=== PATIENT | female | born 1940 | race Caucasian/White ===

== ENCOUNTER 2018-07-31 19:37 | Inpatient (IN) | payer MEDICARE, OTHER ==
[~2018-07-31] VITALS: Ht 170.2 cm; Wt 83.5 kg
[~2018-07-31 19:37] MED LIST: LEVO112T5 PO; METF1000 PO; MONT10TA22 PO; TRIM100T PO
--- NOTE | 2018-07-31 19:40 | NUR ---
PT BIBRA FROM HOME C/O GLF WITH HEAD LACERATION AND L ELBOW PAIN X 30MIN AGO. ON BLOOD THINNERS PER RA. -LOC. PT AOX4. NAD NOTED. RESP EVEN AND UNLABORED. PT ON MONITOR IN BED 12. WILL CONTINUE TO MONITOR.
--- NOTE | 2018-07-31 20:45 | NUR ---
PT TAKEN TO RADIOLOGY VIA WILMER
--- NOTE | 2018-07-31 21:20 | NUR ---
PHLEB AT BEDSIDE
[2018-07-31 21:24] LABS: BASOPHILS % (AUTO) 0.5 % (0.0-2.0); EOSINOPHILS % (AUTO) 1.5 % (0.0-6.0); HEMATOCRIT 42 % (33-45); HEMOGLOBIN 14.4 g/dL (11.5-14.8); LYMPHOCYTES # (AUTO) 2.2 /CMM (0.8-4.8); LYMPHOCYTES % (AUTO) 20.4 % (20.0-44.0); MEAN CORPUSCULAR HGB CONC 34 g/dl (31.0-36.0); MEAN CORPUSCULAR VOLUME 93 fL (82-100); MONOCYTES # (AUTO) 0.6 /CMM (0.1-1.30); MONOCYTES % (AUTO) 5.5 % (2.0-12.0); NEUTROPHILS # (AUTO) 7.7 /CMM (1.8-8.9); NEUTROPHILS % (AUTO) 72.1 % (43.0-81.0); PLATELET COUNT (AUTO) 276 /CMM (150-450); RED BLOOD CELL COUNT(AUTO) 4.51 MIL/uL (4.0-5.2); WHITE BLOOD COUNT (AUTO) 10.7 K/uL (4.3-11.0)
[2018-07-31] MEDS ORDERED: HYDROMORPHONE INJ 0.5 MG/0.5 ML SYRINGE ONE (21:27)
[2018-07-31] MEDS ORDERED: ONDANSETRON HCL/PF 4 MG/2 ML VIAL ONE (21:27)
[2018-07-31] MEDS ORDERED: HYDROMORPHONE INJ 2 MG/ML DISP.SYRIN IV ONE (21:30)
[2018-07-31] MEDS ORDERED: ONDANSETRON HCL/PF 4 MG/2 ML VIAL IVP ONE (21:30)
[2018-07-31 21:34] LABS: CALCIUM, SERUM 9.1 mg/dL (8.5-10.1); CARBON DIOXIDE 25 mmol/L (21-32); CHLORIDE 102 mmol/L (98-107); CREATININE 1.1 mg/dL (0.6-1.3); GLUCOSE 257 mg/dL (74-106); POTASSIUM 3.5 mmol/L (3.5-5.1); SODIUM SERUM 134 mmol/L (136-145); UREA NITROGEN, BLOOD 22 mg/dL (7-18)
[2018-07-31] MEDS ORDERED: Z GUARD REMEDY 2 OZ OINT TP PRN (22:30)
[2018-07-31] MEDS ORDERED: ACETAMINOPHEN 325 MG TABLET PO PRN (22:30)
[2018-07-31] MEDS ORDERED: MAG HYDROX/AL HYDROX/SIMETH 30 ML UDC PO PRN (22:30)
[2018-07-31] MEDS ORDERED: DEXTROSE 50%-WATER 50 ML DISP.SYRIN IV PRN (22:30)
[2018-07-31] MEDS ORDERED: MAGNESIUM HYDROXIDE 30 ML UDC PO PRN (22:30)
[2018-07-31] MEDS ORDERED: ZOLPIDEM TARTRATE 5 MG TABLET PO PRN (22:30)
--- NOTE | 2018-07-31 22:31 | NUR ---
REPORT GIVEN TO AMBER LORD FOR CONTINUATION OF CARE.
[2018-07-31] MEDS ORDERED: LIRA0.6P2 SUBCUT (22:33)
[2018-07-31 23:00] VITALS: BP 193/105
--- NOTE | 2018-07-31 23:00 | NUR ---
CORE BLOWER OPERATOR NOTE PT RECEIVED ON GURNEY AND TRANSFERRED TO ROOM 255 SAFELY. A/O X4 AND ABLE TO MAKE NEEDS KNOWN. ON ROOM AIR AND SATURATING 95%. BREATHING REGULAR AND UNLABORED. NO DISTRESS NOTED. C/O HEADACHE 2-3 OUT OF 10 PAIN. DENIES NAUSEA/VOMIT. PUPILS ARE EQUAL AND REACTIVE. TELE-SR 78. IV LEFT HAND #20 CLEAN, DRY AND FLUSHING WELL. ROOM PHONE PLACED NEXT TO PT. CALL LIGHT WITHIN REACH. WILL CONTINUE TO MONITOR.
[2018-07-31] MEDS: IV NS 0.9% 1,000 ML IV PRN (23:01)
[2018-07-31 23:04] VITALS: BP 193/105
[2018-07-31] MEDS: BLOOD SUGAR DIAGNOSTIC 1 EACH STRIP IN SCH (23:14)
[2018-07-31] MEDS: hydrALAZINE HCL IV 20 MG VIAL IV PRN (23:14)
[2018-07-31] MEDS: INSULIN REGULAR, HUMAN 100 UNIT/ML 3 ML VIAL SQ PRN (23:16)
[2018-07-31 23:30] VITALS: BP 189/96
[2018-07-31 23:45] VITALS: BP 162/85
[2018-08-01] VITALS (29 sets, daily range): BP systolic 114–197; BP diastolic 68–126
[2018-08-01] MEDS: HYDROCODONE/APAP 5/325MG 1 EACH TABLET PO PRN (00:04)
[2018-08-01] MEDS: HYDROMORPHONE 1 MG/1 ML DISP.SYRIN IV PRN ×4 (01:35→20:55)
[2018-08-01] MEDS: ONDANSETRON HCL/PF 4 MG/2 ML VIAL IVP PRN ×4 (01:40→21:01)
--- NOTE | 2018-08-01 01:40 | NUR ---
MAID HOUSEKEEPER NOTE BOOKKEEPING MANAGER ALEJANDRO OPENER TENDER AT BEDSIDE. PT C/O HEADACHE 9 OUT OF 10 PAIN. PT STATES NORCO NOT EFFECTIVE. ALEJANDRO ORDERED DILAUDID 0.5MG IVP PRN AND TO GIVE 1 DOSE NOW. ORDERS NOTED AND CARRIED OUT.
--- NOTE | 2018-08-01 03:30 | NUR ---
TOW TRUCK OPERATOR NOTE PT C/O ITCHINESS ALL OVER BODY. ALEJANDRO CVT RN NOTIFIED WITH ORDER FOR BENADRYL 50MG IVP Q6H PRN. ORDERS NOTED AND CARRIED OUT.
[2018-08-01] MEDS: diphenhydrAMINE HCL 50 MG/ML VIAL IV PRN ×2 (03:40→15:48)
[2018-08-01] MEDS: hydrALAZINE HCL IV 20 MG VIAL IV PRN ×4 (04:30→18:42)
[2018-08-01 04:41] LABS: BASOPHILS % (AUTO) 0.3 % (0.0-2.0); EOSINOPHILS % (AUTO) 0.4 % (0.0-6.0); HEMATOCRIT 41 % (33-45); HEMOGLOBIN 14.2 g/dL (11.5-14.8); LYMPHOCYTES % (AUTO) 19.8 % (20.0-44.0); MEAN CORPUSCULAR HGB CONC 34 g/dl (31.0-36.0); MEAN CORPUSCULAR VOLUME 91 fL (82-100); MONOCYTES # (AUTO) 0.6 /CMM (0.1-1.30); MONOCYTES % (AUTO) 6.1 % (2.0-12.0); NEUTROPHILS # (AUTO) 7.3 /CMM (1.8-8.9); NEUTROPHILS % (AUTO) 73.4 % (43.0-81.0); PLATELET COUNT (AUTO) 278 /CMM (150-450); RED BLOOD CELL COUNT(AUTO) 4.54 MIL/uL (4.0-5.2); WHITE BLOOD COUNT (AUTO) 9.9 K/uL (4.3-11.0)
[2018-08-01 04:51] LABS: CHOLESTEROL 163 mg/dL (<200); HDL CHOLESTEROL 52 mg/dL (40-60); LDL 99 mg/dL (0-99); TRIGLYCERIDES 81 mg/dL (30-150)
[2018-08-01 04:53] LABS: CALCIUM, SERUM 8.6 mg/dL (8.5-10.1); CARBON DIOXIDE 27 mmol/L (21-32); CHLORIDE 104 mmol/L (98-107); CREATININE 0.9 mg/dL (0.6-1.3); GLUCOSE 189 mg/dL (74-106); MAGNESIUM 1.6 mg/dL (1.8-2.4); PHOSPHORUS 3.7 mg/dL (2.5-4.9); POTASSIUM 3.6 mmol/L (3.5-5.1); SODIUM SERUM 139 mmol/L (136-145); UREA NITROGEN, BLOOD 17 mg/dL (7-18)
--- NOTE | 2018-08-01 07:20 | NUR ---
RN INITIAL NOTES RECEIVED PT AWAKE, A/OX4. ON ROOM AIR. NO RESPIRATORY DISTRESS NOTED. PT C/O HEADACHE AND NAUSEA. WILL GIVE PAIN AND ANTIEMETIC ORDERED. HOB ELEVATED. IV LINE IN PLACE. IVF INFUSING. PT CONTINENT. USES BEDSIDE COMMODE. BLE ELEVATED. CALL LIGHT WITHIN REACH. WILL MONITOR.
--- NOTE | 2018-08-01 07:40 | NUR ---
CARE ASSOCIATE NOTE PT REMAINED STABLE DURING SHIFT. NO ACUTE DISTRESS NOTED. ON NEURO CHECKS Q2H. REMAINS ALERT AND ORIENTED. ALL NEEDS ATTENDED TO PROMPTLY. ALL SAFETY MEASURES IN PLACE. WILL ENDORSE TO NEXT SHIFT FOR CONTINUITY OF CARE.
[2018-08-01] MEDS: BLOOD SUGAR DIAGNOSTIC 1 EACH STRIP IN SCH ×4 (08:13→21:56)
[2018-08-01] MEDS: LEVOTHYROXINE SODIUM 112 MCG TABLET PO SCH (08:13)
[2018-08-01] MEDS: Magnesium 1GM/D5W 100ML PREMIX 100 ML IV SCH ×2 (09:55→11:06)
[2018-08-01] MEDS: IV NS 0.9% 1,000 ML IV PRN (11:09)
[2018-08-01] MEDS: INSULIN REGULAR, HUMAN 100 UNIT/ML 3 ML VIAL SQ PRN ×3 (12:26→21:55)
--- NOTE | 2018-08-01 13:00 | NUR ---
RN NOTES SEEN AND EXAMINED BY DR PAULSON. MD AWARE OF CURRENT LAB VALUES AND IMAGING STUDIES. NO CHANGE IN LOC NOTED. MD ORDERED REPEAT CT HEAT WO CONTRAST FOR FF UP. WILL CONTINUE TO MONITOR.
--- NOTE | 2018-08-01 14:00 | NUR ---
RN NOTES SEEN AND EXAMINED BY DR SYLVIE RICHARDSON. MD AWARE OF LAB VALUES AND LATEST IMAGING STUDIES. NO CHANGE IN LOC NOTED. CLEARED PT FOR TELE. WILL CONTINUE TO MONITOR.
--- NOTE | 2018-08-01 17:00 | NUR ---
RN NOTES PT TRANSFERRED TO ROOM 325-2. PT A/OX4. ON ROOM AIR. NO RESPIRATORY DISTRESS NOTED. NO CHANGE IN LOC NOTED. IV LINE IN PLACE. IVF INFUSING. PT CLEAN AND DRY. REPORT GIVEN TO RISA HAYES AT BEDSIDE. TOOK OVER PT'S CARE. TRANSFERRED IN STABLE CONDITION
--- NOTE | 2018-08-01 17:05 | NUR ---
ULTRASONIC CLEANERTWISTING PRESS OPERATOR NOTE RECEIVED PT FROM ICU VIA BED. PT IS ALERT AND ORIENTED X4, DENIES CHANGES IN VISION OR NUMBNESS OR TINGLING OF EXTREMITIES. BILATERAL ARMS AND LEGS ARE STRONG AND EQUAL. FACE IS SYMMETRICAL, SPEECH IS NOT SLURRED. PT IS ABLE TO COMPREHEND QUESTIONS AND COMMUNICATE NEEDS. PT STATES SHE HAS NAUSEA AND AN ACHING HEADACHE 4/10, WAS ADMINISTERED ZOFRAN 4MG AND DILAUDID 0.5MG IN ICU AT 1427. PT PLACED IN FENCE REPAIRMAN WITH SINUS RHYTHM, HR IN 90'S. VS OBTAINED, BP IS 158/86, PT HAS ORDERS TO KEEP SPB UNDER 140, HYDRALAZINE 10MG IV Q4H WAS ADMINISTERED AT 1427. WILL CONTINUE TO MONITOR BP. BREATHING IS EVEN AND UNLABORED ON ROOM AIR. PT DENIES CHEST PAIN AND SOB. R HAND #20G IV IS INFUSING NS @ 75ML/HR WITHOUT REDNESS OR SWELLING. ALL BELONGINGS ACCOUNTED FOR AND BELONGINGS LIST PLACED IN CHART. UNIT ORIENTATION PROVIDED TO PT INCLUDING USE OF CALL LIGHT AND TO CALL FOR ASSISTANCE PRIOR TO ATTEMPTING TO GET OUT OF BED. PT VERBALIZED AGREEMENT AND UNDERSTANDING. BED IS LOCKED AND IN LOWEST POSITION, SIDE RAILS UP X2,BED ALARM ON ,CALL LIGHT WITHIN REACH.
--- NOTE | 2018-08-01 17:41 | NUR ---
MS RN ACCU CHECK BS: 186, NO COVERAGE PROVIDED HOWEVER BECAUSE PT STATED SHE DOES NOT WANT TO EAT DINNER DUE TO C/O OF NAUSEA.
--- NOTE | 2018-08-01 18:43 | NUR ---
MS RN HYDRALAZINE HYDRALAZINE 10MG IVP ADMINISTERED ORDERED FOR BP 168/88 , HR 90. PT IS ON TELE MONITOR WITH SR.
--- NOTE | 2018-08-01 18:55 | NUR ---
MS RN NOTE PT CURRENT BP IS 158/87, HR 94. PT IS SR ON MONITOR.
--- NOTE | 2018-08-01 19:20 | NUR ---
SHAREPOINT DEVELOPER CLOSING NOTE PT IN BED, SLEEPING AND EASILY AROUSABLE. NEUROLOGIC STATUS AT BASELINE WITH PT A/O X4, DENIES CHANGES IN VISION OR NUMBNESS AND TINGLING IN THE EXTREMITIES. STRENGTH IS EQUAL AND BILATERAL IN ARMS AND LEGS. PUPILS ARE REACTIVE AND EQUAL BILATERALLY. PT IS STILL NAUSEOUS, DENIES N/V, CHEST PAIN, SOB. BREATHING IS EVEN AND UNLABORED ON ROOM AIR. PT ON BREAD WRAPPER WITH SR, HR IN 90'S. PT DENIES CHEST PAIN OR SOB. L HAND #20G IV IS INFUSING ORDERED WITHOUT REDNESS OR SWELLING. ALL NEEDS ATTENDED TO. PT SCHEDULED FOR ROUTINE HEAD CT W/O CONTRAST. BED IS LOCKED AND IN LOWEST POSITION, SIDE RAILS UP X2, BED ALARM ON, CALL LIGHT AND POSSESSIONS WITHIN REACH. WILL ENDORSE TO PIPELINE EXECUTIVE NURSE FOR CONTINUITY OF CARE.
--- NOTE | 2018-08-01 19:30 | NUR ---
SECURITY SOFTWARE ENGINEER NOTES RECEIVED PATIENT AWAKE IN BED WITH NO DISTRESS NOTED. CALL LIGHT WITHIN REACH. NO C/O PAIN OR DISCOMFORT. PERIPHERAL LINE INTACT AND PATENT. BED IN LOW LOCK SETTING. ALL BELONGINGS KEPT NEAR BEDSIDE. WILL CONTINUE TO MONITOR.
[2018-08-01] MEDS: MONTELUKAST SODIUM (10MG) 10 MG TABLET PO SCH (22:00)
[2018-08-02] VITALS: BP_SYST 154; BP_SYST 182; BP_DIAS 77; BP_DIAS 95
[2018-08-02] MEDS: hydrALAZINE HCL IV 20 MG VIAL IV PRN ×3 (01:24→21:10)
[2018-08-02] MEDS: IV NS 0.9% 1,000 ML IV PRN (01:32)
[2018-08-02] MEDS: HYDROMORPHONE 1 MG/1 ML DISP.SYRIN IV PRN (01:51)
--- NOTE | 2018-08-02 06:30 | NUR ---
ASSISTANT PURCHASING MANAGER NOTES PATIENT ASLEEP IN BED WITH NO DISTRESS NOTED. CALL LIGHT WITHIN REACH. PATIENT REFUSED 4AM VITALS CHECK AND AM FSBS CHECK DESPITE EXPLANATION OF RISKS/BENEFITS X3. NO FURTHER C/O PAIN OR DISCOMFORT. PERIPHERAL LINE INTACT AND PATENT. BED IN LOW LOCK SETTING. ALL BELONGINGS KEPT NEAR BEDSIDE. WILL ENDORSE TO ONCOMING SHIFT.
--- NOTE | 2018-08-02 07:20 | NUR ---
RN OPENING NOTES RECEIVED PT. PT STABLE AND RESTING IN BED. NO S/S OF RESP DISTRESS/SOB. A/OX4. PT HAS C/O SERVICE AT HOSPITAL, IS IRRITABLE/IRATE. NON-COMPLIANT WITH RECOMMENDATIONS THUS FAR. NON-COMPLIANT WITH ACCUCHECK IN AM. PT TO HAVE F/U HEAD CT W/O CONTRAST IN AM. SAFETY MEASURES IN PLACE, CALL LIGHT WITHIN REACH. WILL CONTINUE TO MONITOR.
[2018-08-02] MEDS: BLOOD SUGAR DIAGNOSTIC 1 EACH STRIP IN SCH ×4 (07:30→21:09)
[2018-08-02 08:00] VITALS: BP_SYST 133; BP_SYST 153; BP_DIAS 84
--- NOTE | 2018-08-02 08:18 | NUR ---
RN NOTES PT REFUSED AM ACCUCHECK. PT WAS UPSET/IRATE IN AM C/O TALKING/LOUD NOISES THAT HAS KEPT HER UP THROUGHOUT THE NIGHT. UNCOOPERATIVE WITH BS CHECK AT THIS TIME. WILL F/U.
[2018-08-02] MEDS: LEVOTHYROXINE SODIUM 112 MCG TABLET PO SCH (08:37)
[2018-08-02] MEDS: HYDROCODONE/APAP 5/325MG 1 EACH TABLET PO PRN (08:38)
[2018-08-02] MEDS ORDERED: SUMATRIPTAN SUCCINATE 25 MG TABLET PO ONE (09:00)
[2018-08-02 10:36] LABS: BASOPHILS % (AUTO) 0.2 % (0.0-2.0); HEMATOCRIT 42 % (33-45); HEMOGLOBIN 14.1 g/dL (11.5-14.8); LYMPHOCYTES # (AUTO) 1.6 /CMM (0.8-4.8); LYMPHOCYTES % (AUTO) 16.3 % (20.0-44.0); MEAN CORPUSCULAR HGB CONC 34 g/dl (31.0-36.0); MEAN CORPUSCULAR VOLUME 93 fL (82-100); MONOCYTES # (AUTO) 0.5 /CMM (0.1-1.30); MONOCYTES % (AUTO) 4.9 % (2.0-12.0); NEUTROPHILS # (AUTO) 7.8 /CMM (1.8-8.9); NEUTROPHILS % (AUTO) 78.6 % (43.0-81.0); PLATELET COUNT (AUTO) 292 /CMM (150-450); RED BLOOD CELL COUNT(AUTO) 4.52 MIL/uL (4.0-5.2); WHITE BLOOD COUNT (AUTO) 9.9 K/uL (4.3-11.0)
[2018-08-02 10:46] LABS: CALCIUM, SERUM 8.7 mg/dL (8.5-10.1); CARBON DIOXIDE 26 mmol/L (21-32); CHLORIDE 104 mmol/L (98-107); CREATININE 0.9 mg/dL (0.6-1.3); GLUCOSE 240 mg/dL (74-106); MAGNESIUM 1.8 mg/dL (1.8-2.4); PHOSPHORUS 3.3 mg/dL (2.5-4.9); POTASSIUM 3.5 mmol/L (3.5-5.1); SODIUM SERUM 139 mmol/L (136-145); UREA NITROGEN, BLOOD 17 mg/dL (7-18)
[2018-08-02 12:00] VITALS: BP 133/84
--- NOTE | 2018-08-02 12:00 | NUR ---
RN NOTES INSULIN NOT GIVEN FOR COVERAGE, PT REFUSING MOST OF LUNCH STATING THAT SHE HAS N/V. TOTAL CONSUMED FOR LUNCH <10%. WILL CONTINUE TO MONITOR.
[2018-08-02 16:00] VITALS: BP 187/94
--- NOTE | 2018-08-02 18:59 | NUR ---
RN CLOSING NOTE PT IN BED RESTING. NO S/S OF RESP DISTRESS/SOB. NO C/O PAIN AT THIS TIME. ALL PT NEEDS ANTICIPATED AND MET. SAFETY MEASURES IN PLACE, CALL LIGHT WITHIN REACH. WILL ENDORSE TO SYSTEM VALIDATION ENGINEER FOR ANGÉLICA.
[2018-08-02 20:00] VITALS: BP 177/95
--- NOTE | 2018-08-02 20:15 | NUR ---
RECORD LABEL INTERN OPENING NOTES RECEIVED REPORT FROM DANN LORD. PATIENT A/A/O X4, ALTURAS IN BOTH EARS BUT ABLE TO MAKE NEEDS KNOWN. BREATHING EVEN & UNLABORED, TOLERATING ROOM AIR. ON TELE W/ SINUS RHYTHM & RADIAL PULSES PRESENT. NO RESPIRATORY OR CARDIAC DISTRESS NOTED. LEFT HAND IV #20 INTACT & PATENT W/ DRESSING CDI, SALINE LOCKED & REFUSING IVF @ THIS TIME. C/O HEADACHE, PAIN MED TO BE GIVEN. SAFETY MEASURES IN PLACE W/ SIDE RAILS UP & BED ALARM ON. INSTRUCTED TO USE CALL LIGHT FOR ASSISTANCE. WILL CONTINUE TO MONITOR.
[2018-08-02 20:54] VITALS: BP 177/95
[2018-08-02] MEDS: MONTELUKAST SODIUM (10MG) 10 MG TABLET PO SCH (21:09)
[2018-08-02] MEDS: INSULIN REGULAR, HUMAN 100 UNIT/ML 3 ML VIAL SQ PRN (21:11)
--- NOTE | 2018-08-02 21:30 | NUR ---
CONSUMER INSIGHT MANAGER NOTES BP 177/95, HR 88. HYDRALAZINE 10MG IV GIVEN.
[2018-08-02] MEDS: ONDANSETRON HCL/PF 4 MG/2 ML VIAL IVP PRN (22:57)
[2018-08-03] MEDS: HYDROMORPHONE 1 MG/1 ML DISP.SYRIN IV PRN (00:34)
[2018-08-03 06:24] VITALS: BP 145/98
[2018-08-03] MEDS: INSULIN REGULAR, HUMAN 100 UNIT/ML 3 ML VIAL SQ PRN ×4 (06:53→22:27)
[2018-08-03] MEDS: BLOOD SUGAR DIAGNOSTIC 1 EACH STRIP IN SCH ×4 (06:54→22:25)
[2018-08-03 08:00] VITALS: BP 183/90
--- NOTE | 2018-08-03 08:45 | NUR ---
GIVEN HYDRALAZINE IV FOR VERY HIGH BP AND ADDITIONALLY PLACED ON TELE AND SR PRIOR TO MED AND AFTER.
[2018-08-03] MEDS: hydrALAZINE HCL IV 20 MG VIAL IV PRN (08:47)
[2018-08-03 09:59] LABS: BASOPHILS # (AUTO) 0.1 /CMM (0.0-0.2); BASOPHILS % (AUTO) 0.4 % (0.0-2.0); EOSINOPHILS % (AUTO) 0.2 % (0.0-6.0); HEMATOCRIT 44 % (33-45); HEMOGLOBIN 14.7 g/dL (11.5-14.8); LYMPHOCYTES # (AUTO) 2.7 /CMM (0.8-4.8); LYMPHOCYTES % (AUTO) 21.6 % (20.0-44.0); MEAN CORPUSCULAR HGB CONC 33 g/dl (31.0-36.0); MEAN CORPUSCULAR VOLUME 92 fL (82-100); MONOCYTES # (AUTO) 0.9 /CMM (0.1-1.30); MONOCYTES % (AUTO) 6.9 % (2.0-12.0); NEUTROPHILS # (AUTO) 8.8 /CMM (1.8-8.9); NEUTROPHILS % (AUTO) 70.9 % (43.0-81.0); PLATELET COUNT (AUTO) 295 /CMM (150-450); RED BLOOD CELL COUNT(AUTO) 4.77 MIL/uL (4.0-5.2); WHITE BLOOD COUNT (AUTO) 12.4 K/uL (4.3-11.0)
[2018-08-03] MEDS: LEVOTHYROXINE SODIUM 112 MCG TABLET PO SCH (10:02)
[2018-08-03 10:13] LABS: CALCIUM, SERUM 8.5 mg/dL (8.5-10.1); CARBON DIOXIDE 26 mmol/L (21-32); CHLORIDE 100 mmol/L (98-107); CREATININE 0.8 mg/dL (0.6-1.3); GLUCOSE 271 mg/dL (74-106); MAGNESIUM 1.6 mg/dL (1.8-2.4); PHOSPHORUS 2.8 mg/dL (2.5-4.9); POTASSIUM 3.2 mmol/L (3.5-5.1); SODIUM SERUM 135 mmol/L (136-145); UREA NITROGEN, BLOOD 18 mg/dL (7-18)
[2018-08-03] MEDS ORDERED: MECLIZINE HCL 12.5 MG TABLET PO PRN (10:30)
[2018-08-03] MEDS ORDERED: IBUPROFEN 400 MG TABLET PO PRN (10:30)
[2018-08-03] MEDS ORDERED: HYDROCODONE/APAP 5/325MG 1 EACH TABLET PO PRN (10:30)
[2018-08-03] MEDS ORDERED: SUMATRIPTAN SUCCINATE 25 MG TABLET PO ONE (10:30)
[2018-08-03] MEDS: TRAMADOL HCL 50 MG TABLET PO SCH ×2 (10:38→17:53)
[2018-08-03] MEDS ORDERED: POTASSIUM CHLORIDE 20 MEQ TAB.PRT.SR PO ONE (11:00)
[2018-08-03] MEDS: ONDANSETRON HCL/PF 4 MG/2 ML VIAL IVP PRN (12:51)
[2018-08-03] MEDS ORDERED: MAGNESIUM OXIDE 400 MG TABLET PO ONE (14:00)
--- NOTE | 2018-08-03 15:00 | NUR ---
MG AND POTASSIUM REPLACEMENT GIVEN.
[2018-08-03 16:00] VITALS: BP 175/58
[2018-08-03] MEDS: AMLODIPINE BESYLATE 5 MG TABLET PO SCH (16:26)
--- NOTE | 2018-08-03 16:40 | NUR ---
NORVASC GIVEN AT THIS TIME TIME ORDERED BP WAS 116 /60.
--- NOTE | 2018-08-03 18:00 | NUR ---
MEDICATED MULTIPLE TIMES FOR HEADACHE.
--- NOTE | 2018-08-03 19:30 | NUR ---
PATHOLOGY TECH NOTES RECEIVED ON BED SLEEPING,AROUSABLE TO VERBAL STIMULI.BREATHING REGULAR,NOT IN ANY FORM OF DISTRESS.S/P FALL AT HOME IN THE DRIVEWAY,SUSTAINED SUBDURAL HEMATOMA.A/O X3,ABLE TO VERBALIZED NEEDS.CALL LIGHT IN REACH,NEEDS ANTICIPATED.
[2018-08-03 20:00] VITALS: BP 150/83
--- NOTE | 2018-08-03 22:00 | NUR ---
ROAD TRAFFIC CONTROLLER NOTES ACCU-CHECK BLOOD SUGAR CHECK 227,COVERED WITH HUMULIN R 4 UNITS PER SLIDING SCALE.SNACKS PROVIDED AT BEDSIDE.
--- NOTE | 2018-08-03 22:30 | NUR ---
HEAD OF MOBILE NOTES SR-76 ON TELE MONITOR.
[2018-08-03] MEDS: MONTELUKAST SODIUM (10MG) 10 MG TABLET PO SCH (22:32)
[2018-08-04 01:15] VITALS: BP 161/85
[2018-08-04] MEDS: hydrALAZINE HCL IV 20 MG VIAL IV PRN (01:15)
--- NOTE | 2018-08-04 01:15 | NUR ---
COLLAR SETTER NOTES HANDED BY PHILIP ELLIS,BLOOD PRESSURE 161/85,PULSE 75,MEDICATED WITH APRESOLINE 10MG IV ORDERED FOR SBP GREATER THAN 140.
[2018-08-04] MEDS: TRAMADOL HCL 50 MG TABLET PO SCH ×2 (02:30→11:41)
--- NOTE | 2018-08-04 07:15 | NUR ---
MS RN NOTES PER WREATH MAKER,PATIENT REFUSED BLOOD DRAW,SHE WANT IT LATER. APPEARS SLEEPY,SALINE LOCK REMAINS INTACT AND PATENT.A.O X3,VERBALIZED NEEDS,IN NO ACUTE DISTRESS.WILL ENDORSE TO DAY NURSE FOR ANGÉLICA.
--- NOTE | 2018-08-04 07:17 | NUR ---
MS RN OPENING NOTE RECEIVED PATIENT IN BED. SLEEPING, EASILY AROUSED WITH VERBAL STIMULI. ORIENTED X3. ON ROOM AIR, TOLERATING WELL . IN NO APPARENT DISTRESS OR DISCOMFORT AT THIS TIME. RESPIRATIONS EVEN AND UNLABORED. DENIES PAIN AND SOB. PER NIGHT RN PATIENT REFUSED AM LABS AND ACCU-CHECK. PATIENT IS ABLE TO VERBALIZE NEEDS. LEFT HAND 20G IVC SL, PATENT AND INTACT. PATIENT KEPT CLEAN AND COMFORTABLE. ALL NEEDS ATTENDED, SAFETY MEASURES IN PLACE, BED IN LOW LOCKED POSITION, SIDE RAILS UP X2, CALL LIGHT WITHIN EASY REACH. WILL CONTINUE TO MONITOR.
[2018-08-04 08:00] VITALS: BP_SYST 151; BP_DIAS 81; BP_DIAS 98
[2018-08-04] MEDS: BLOOD SUGAR DIAGNOSTIC 1 EACH STRIP IN SCH ×2 (08:51→11:54)
[2018-08-04] MEDS: AMLODIPINE BESYLATE 5 MG TABLET PO SCH (08:52)
[2018-08-04] MEDS: INSULIN REGULAR, HUMAN 100 UNIT/ML 3 ML VIAL SQ PRN ×2 (08:52→11:54)
[2018-08-04] MEDS: LEVOTHYROXINE SODIUM 112 MCG TABLET PO SCH (08:53)
[2018-08-04] MEDS ORDERED: VALSARTAN 80 MG TABLET PO SCH (10:00)
[2018-08-04 11:00] VITALS: BP_SYST 156; BP_SYST 171; BP_DIAS 101; BP_DIAS 103; BP_DIAS 89
--- NOTE | 2018-08-04 11:11 | NUR ---
MYSTERY SHOPPER REPORTED THAT PATIENT CONTINUES TO REFUSE LAB DRAWS. ATTEMPTED TO SPEAK TO THE PATIENT AND CONVINCE. PATIENT STATES SHE DOES NOT WANT ANYMORE LABS. RISKS AND BENEFITS EXPLAINED. WILL NOTIFY DR MARTINEZ.
[2018-08-04 11:40] VITALS: BP 156/89
--- NOTE | 2018-08-04 12:00 | NUR ---
PATIENT VERBALIZED DESIRE TO SHOWER PRIOR TO GOING HOME. NOTIFIED DR. MARTINEZ. PER OK TO SHOWER. NOTED AND CARRIED OUT.
--- NOTE | 2018-08-04 16:30 | NUR ---
MS INSTALLER APPRENTICE NOTE RECEIVED ORDER FOR DISCHARGE FROM DR. MARTINEZ. PATIENT IS BEING DISCHARGE HOME TO SELF CARE. PATIENT IS ALERT ORIENTED X4. MEDICALLY STABLE, VITAL SIGNS STABLE. IN NO APPARENT DISTRESS OR DISCOMFORT AT THIS TIME. RESPIRATIONS EVEN AND UNLABORED. MARIANNE PAIN AND SOB. DISCHARGE PREPARED VIA [facility]. EDUCATION PROVIDED TO THE PATIENT REGARDING DIAGNOSIS, DISCONTINUED AND CONTINUED MEDICATIONS, DIET AND FOLLOW UP CARE. PATIENT VERBALIZED UNDERSTANDING OF ALL THE INSTRUCTIONS. VALUABLES CHECKED AND ACCOUNTED FOR. ALL PAPERWORK SIGNED COPIES MADE PLACED IN CHART. ACCORDING TO THE PATIENT SHE IS UP TO DATE WITH VACCINATIONS, BUT DOES NOT RECALL THE DATES. PATIENT SKIN ASSESSMENT PERFORMED, NO NEW IMPAIRMENTS NOTED, PICTURES TAKEN PLACED IN CHART. IV SITE REMOVED, TIP INTACT. ID BANDS REMOVED. PATIENT LEFT THE UNIT ON WHEELCHAIR ACCOMPANIED BY CLAIRE, [place] GUIDE AND PICKED UP BY HER FRIEND FROM THE HOSPITAL AT 1630.
== END 2018-08-04 16:15 | disposition home or self-care (01) | DRG 86 ==
LOC: ER 19:39 → ICU 21:29 → TELE 08-01 16:49 → MED 08-02 10:04 → TELE 08-03 14:15 → MED 08-04 02:06
PROVIDERS: ADMIT Nurse Practitioner Acute Care; ATTEND Internal Medicine
DX: S06.5X0A Traumatic subdural hemorrhage without loss of consciousness, initial encounter (principal); E87.1 Hypo-osmolality and hyponatremia; J90 Pleural effusion, not elsewhere classified; E86.0 Dehydration; E11.9 Type 2 diabetes mellitus without complications; E03.9 Hypothyroidism, unspecified; E83.42 Hypomagnesemia; I83.90 Asymptomatic varicose veins of unspecified lower extremity; Z79.84 Long term (current) use of oral hypoglycemic drugs; Z79.899 Other long term (current) drug therapy; I16.0 Hypertensive urgency; K59.00 Constipation, unspecified; R79.89 Other specified abnormal findings of blood chemistry; S01.91XA Laceration without foreign body of unspecified part of head, initial encounter; M25.529 Pain in unspecified elbow; Z98.1 Arthrodesis status; W01.198A Fall on same level from slipping, tripping and stumbling with subsequent striking against other object, initial encounter; Y92.008 Other place in unspecified non-institutional (private) residence as the place of occurrence of the external cause; F12.90 Cannabis use, unspecified, uncomplicated; J45.20 Mild intermittent asthma, uncomplicated; R55 Syncope and collapse; I10 Essential (primary) hypertension
CPT/HCPCS: 36415; 70450-TC; 71045-TC; 72125-TC; 80048-TC; 80061-TC; 82962-TC; 83735-TC; 84100-TC; 85025-TC; 85730-TC; 87081-TC; 93307-TC; A6403; G0378; J0360; J1170; J1200; J1815; J2405; J3475; J7030; J8597